=== PATIENT | female | born 1975 | race African-American/Black ===

== ENCOUNTER → 2016-09-07 | Day surgery (SDC) | payer OTHER | END | disposition home or self-care (01) | LOC: JRADIR 09:27 | PROVIDERS: ATTEND Internal Medicine Endocrinology, Diabetes & Metabolism | PROC: 0G9G3ZX Drainage of Left Thyroid Gland Lobe, Percutaneous Approach, Diagnostic (ICD-10-PCS; principal; 2016-09-07) | PROC: BG44ZZZ Ultrasonography of Thyroid Gland (ICD-10-PCS; 2016-09-07) | DX: E04.1 Nontoxic single thyroid nodule (principal) | CPT/HCPCS: 76942; 88173; 88305-TC ==

== ENCOUNTER → 2016-09-15 | Day surgery (SDC) | payer OTHER ==
--- NOTE | 2016-09-16 14:34 | PATH ---
Cytology Non-Gynecological Report Patient Name: LUIS FELIPE ARMENDARIZ [facility]. Rec. #: [id number] /Age/Gender: 1975 (Age: 41) / F Account: [id number] Location: RADIOLOGY Taken: 09/15/2016 Received: 09/15/2016 Reported: 09/16/2016 Physicians: Adin Newton M.D. Specimen(s) Received RIGHT THYROID FNA Clinical History Right thyroid nodule, 2.66 x 2.30 x 2.82 cm Final Diagnosis THYROID GLAND, RIGHT LOBE, US GUIDED FINE NEEDLE ASPIRATION BIOPSY: SATISFACTORY FOR EVALUATION. NO MALIGNANT CELLS IDENTIFIED. CONSISTENT WITH NODULAR GOITER WITH CYSTIC CHANGE (BENIGN FOLLICULAR NODULE, BETHESDA CATEGORY II, BENIGN), SEE COMMENT. Comment: The smears and the cell block show clusters of bland appearing follicular epithelial cells arranged in mixed macro- and microfollicles and flat sheets. Many cells show Hurthle cell (lymphocytic) change. Macrophages are present indicative of cystic change. Abundant colloid is present. Electronically Signed Toni Campos M.D. Gross Description Received are four air dried smears, four smears in 95% alcohol, and 20 cc of bloody fluid in formalin. Four diff-quik stained slides, four Pap stained slides and one cell block are made.
== END | disposition home or self-care (01) ==
LOC: JRADIR 09:27
PROVIDERS: ATTEND Internal Medicine Endocrinology, Diabetes & Metabolism
PROC: 0G9H3ZX Drainage of Right Thyroid Gland Lobe, Percutaneous Approach, Diagnostic (ICD-10-PCS; principal; 2016-09-15)
PROC: BG44ZZZ Ultrasonography of Thyroid Gland (ICD-10-PCS; 2016-09-15)
DX: E04.1 Nontoxic single thyroid nodule (principal)
CPT/HCPCS: 76942; 88173; 88305-TC

== ENCOUNTER 2017-01-23 17:07 | Emergency (ER) | payer OTHER ==
[2017-01-23 17:12] VITALS: BP 125/90; PULSE 88; TEMP 98.4; BMI 42.7
[2017-01-23] MEDS ORDERED: ASPIRIN 81 MG CHEWABLE TABLETS PO ONE (19:21)
--- NOTE | 2017-01-23 19:26 | PDOC ---
History of Present Illness <Monica Pabon - Last Filed: 01/23/17 21:53> - General History Source: Patient Exam Limitations: No Limitations <Kelly Low - Last Filed: 01/24/17 01:18> - General Chief Complaint: Palpitations Stated Complaint: PALPITATIONS - History of Present Illness Initial Comments: 01/23/17 20:12 The patient is a 53 year old female, with a significant past medical history of hypertension (lisinopril), diabetes (taking metformin 500 mg and glipizide BID) , and asthma (inhaler as needed), who presents to the emergency department with complaint of chest discomfort, irregular heartbeat and palpitations today. 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 She states she has been intermittently experiencing palpitations which last for about a minute. She states she can not identify what brings the palpitations on. She also reports she has been feeling intermittent chest discomfort, described as congestion and heavy. SHe also states she has a nonproductive cough. She states her two daughters have a cough at home also. She reports experiencing palpitations in the past when her physician increased her metformin from 500mg to 1000mg, which she reports she has since decreased back to the 500mg. She states her glucose has been difficult to manage, however, states she knows she could be eating much better. The patient states she has also been under a great deal of stress lately because she is currently homeless and living in a [facility]. She states she was able to keep her insurance. She reports her brother from heart disease at age 46 this past June. She states her father dies of heart disease at age 48. She states her mother has CAD s/p stent. She denies lower extremity edema, shortness of breath, headache and dizziness. She denies fever, chills, nausea, vomit, diarrhea and constipation. She denies dysuria, frequency, urgency and hematuria. Allergies: morphine Past surgical history: partial thyroidectomy, x 3 Social history: Pt lives in a [facility]. Employed as a business integration manager. PCP - Dr. Walker (Monica Pabon) Past History <oMnica Pabon - Last Filed: 01/23/17 21:53> - Past Medical History Diabetes: Yes HTN: Yes Hypercholesterolemia: Yes - Family Disease History Family Disease History: Heart Disease: Father ( [place] age 42), Brother (from age 35) - Suicide/Smoking/Psychosocial Hx Smoking Status: Yes Smoking History: Never smoked Have you smoked in the past 12 months: Yes Number of Cigarettes Smoked Daily: 0 If you are a former smoker, when did you quit?: quit 8 months ago 'Breaking Loose' booklet given: 02/15/12 Hx Alcohol Use: No Drug/Substance Use Hx: No Substance Use Type: None Hx Substance Use Treatment: No <Kelly Low - Last Filed: 01/24/17 01:18> - Past Medical History Allergies/Adverse Reactions: Allergies Allergy/AdvReac Type Severity Reaction Status Date / Time morphine Allergy Itching Verified 01/23/17 17:08 Home Medications: Ambulatory Orders Hctz 25Mg/Triamterene [Dyazide 25/37.5 -] 1 cap PO DAILY #1 capsule 02/17/12 Lisinopril [Prinivil] 10 mg PO DAILY #1 02/17/12 Glipizide 5 mg PO BID 01/23/17 Metformin HCl 500 mg PO BID 01/23/17 Review of Systems - Review of Systems Able to Perform ROS?: Yes <Monica Pabon - Last Filed: 01/23/17 21:53> <Kelly Low - Last Filed: 01/24/17 01:18> - Review of Systems Comments:: 01/23/17 20:14 GENERAL/CONSTITUTIONAL: No fever or chills. No weakness. HEAD, EYES, EARS, NOSE AND THROAT: No change in vision. No ear pain or discharge. No sore throat. CARDIOVASCULAR: (+) Chest discomfort, palpitations, "irregular heartbeat". No shortness of breath. RESPIRATORY: (+) cough, No wheezing, or hemoptysis. GASTROINTESTINAL: No nausea, vomiting, diarrhea or constipation. GENITOURINARY: No dysuria, frequency, or change in urination. MUSCULOSKELETAL: No joint or muscle swelling or pain. No neck or back pain. SKIN: No rash NEUROLOGIC: No headache, vertigo, loss of consciousness, or change in strength/ sensation. ENDOCRINE: No increased thirst. No abnormal weight change. HEMATOLOGIC/LYMPHATIC: No anemia, easy bleeding, or history of blood clots. ALLERGIC/IMMUNOLOGIC: No hives or skin allergy. (Monica Pabon) *Physical Exam <Monica Pabon - Last Filed: 01/23/17 21:53> <Kelly Low - Last Filed: 01/24/17 01:18> - Vital Signs Last Vital Signs Temp Pulse Resp BP Pulse Ox 98.4 F 88 18 125/90 100 01/23/17 17:09 01/23/17 17:09 01/23/17 17:09 01/23/17 17:09 01/23/17 17:09 - Physical Exam Comments: 01/23/17 20:15 GENERAL: (+) obese. Awake, alert, and fully oriented, in no acute distress HEAD: No signs of trauma EYES: PERRLA, EOMI, sclera anicteric, conjunctiva clear ENT: Auricles normal inspection, hearing grossly normal, nares patent, oropharynx clear without exudates. Moist mucosa NECK: Normal ROM, supple, no lymphadenopathy, JVD, or masses LUNGS: Breath sounds equal, clear to auscultation bilaterally. No wheezes, and no crackles HEART: Regular rate and rhythm, normal S1 and S2, no murmurs, rubs or gallops ABDOMEN: Soft, nontender, normoactive bowel sounds. No guarding, no rebound. No masses EXTREMITIES: Normal range of motion, no edema. No clubbing or cyanosis. No cords , erythema, or tenderness NEUROLOGICAL: Cranial nerves II through XII grossly intact. Normal speech, normal gait SKIN: Warm, Dry, normal turgor, no rashes or lesions noted. (Monica Pabon) Heart Score/ECG Review <Monica Pabon - Last Filed: 01/23/17 21:53> - History History: Slightly suspicious - Electrocardiogram EKG: Normal - Age Age: </= 45 - Risk Factors Risk Factors Heart Score: Yes Hx Hypertension, Yes Hx Diabetes, Yes Positive family hx of cardiac disease, Yes Hx Obesity Based on the list above the patient has:: >/=3 risk factors or Hx atherosclerotic disease - Troponin Troponin: </= normal limit - Score Heart Score - Total: 2 - ECG Intrepretation Rhythm: Regular Rhythm - [place]: Normal - P and GA Atrial Enlargement: Left - ST and T Non Specific ST-T Wave changes: Yes <Kelly Low - Last Filed: 01/24/17 01:18> - ECG Intrepretation Comment:: 01/23/17 20:[address] Swift at 17:[address] Low at 19:00 Impression: Normal sinus rhythm without change from prior EKG on 02/15/12. ( Monica Pabon) - ST and T Comment:: 01/23/17 19:29 no acute change comparison 02/15/2012 (Kelly Low) ED Treatment Course - LABORATORY CBC & Chemistry Diagram: 01/23/17 19:39 01/23/17 19:39 <Monica Pabon - Last Filed: 01/23/17 21:53> - LABORATORY CBC & Chemistry Diagram: 01/23/17 19:39 01/23/17 19:39 <Kelly Low - Last Filed: 01/24/17 01:18> - ADDITIONAL ORDERS Additional order review: Laboratory Results 01/23/17 01/23/17 01/23/17 23:45 19:40 19:40 Sodium Potassium Chloride Carbon Dioxide Anion Gap BUN Creatinine Creat Clearance w eGFR Random Glucose Calcium Total Bilirubin AST ALT Alkaline Phosphatase Creatine Kinase 259 H Creatine Kinase Index 1.0 CK-MB (CK-2) 2.633 Troponin I < 0.02 Total Protein Albumin TSH Urine Color Yellow Urine Appearance Cloudy Urine pH 5.0 Ur Specific [place] 1.025 Urine Protein Negative Urine Glucose (UA) Negative Urine Ketones Negative Urine Blood Negative Urine Nitrite Negative Urine Bilirubin Negative Urine Urobilinogen Negative Urine RBC 3 Urine WBC 9 Ur Epithelial Cells Few Urine Mucus Rare Urine HCG, Qual Negative 01/23/17 19:39 Sodium 138 Potassium 4.0 Chloride 104 Carbon Dioxide 27 Anion Gap 7 L BUN 10 D Creatinine 0.8 Creat Clearance w eGFR > 60 Random Glucose 127 H Calcium 9.0 Total Bilirubin 0.5 AST 15 D ALT 23 D Alkaline Phosphatase 112 D Creatine Kinase 299 H Creatine Kinase Index 1.0 CK-MB (CK-2) 3.032 Troponin I < 0.02 Total Protein 7.8 Albumin 3.7 TSH 0.91 Urine Color Urine Appearance Urine pH Ur Specific [place] Urine Protein Urine Glucose (UA) Urine Ketones Urine Blood Urine Nitrite Urine Bilirubin Urine Urobilinogen Urine RBC Urine WBC Ur Epithelial Cells Urine Mucus Urine HCG, Qual 01/23/17 19:39 RBC 4.15 MCV 83.8 MCHC 34.3 RDW 13.8 MPV 8.7 Neutrophils % 60.2 Lymphocytes % 28.1 Monocytes % 9.1 Eosinophils % 2.2 Basophils % 0.4 - RADIOLOGY Radiology Studies Ordered: Category Date Time Status CHEST PA & LAT [RAD] Stat Radiology 01/23/17 19:22 Taken Radiograph Interpretation: 01/23/17 21:53 CXR was read by Dr. Low at this time Impression: No acute pulmonary disease (Monica Pabon) - Medications Given in the ED: ED Medications Discontinued Medications Generic Name Dose Route Start Last Admin Trade Name Freq PRN Reason Stop Dose Admin Aspirin 162 mg 01/23/17 19:21 01/23/17 19:50 Asa - PO 01/23/17 19:22 162 mg ONCE ONE Administration Medical Decision Making <Monica Pabon - Last Filed: 01/23/17 21:53> <Kelly Low - Last Filed: 01/24/17 01:18> - Medical Decision Making 01/23/17 19:23 41 yo F with h/o DM HTN palpitations, prior thyroidectomy here with c/o palpitations. no prior cardiac workup. started few days ago. describes as irregular feeling or skipped beats. does have mild chest tightness. no sob. no n /v sometimes has substernal burning feeling. no leg swelling. believes symptoms are related to recent increase in metformin from 500 to 1000 bid. does have family h/o cad ( mother , brother mi 42 , father mi 47, mother [facility] stents) . no f/c no n/f no other complaints. on exam awake alert lungs clear heart rrr no mrg. abd soft obese. nt. nd. ext wwp no edema. 2 _ dp/ pt pulses. nuero alert oriented, move all four ext. plan: r/o endocrine causes, electrolyte abnormality, r/o acs. hydrate. ua ucg. ekg r/o irregular dysrhhtymia. reassess. cxr. 01/23/17 20:44 review pt old electronic record. had negative stress and echo 2011 which was normal for similar complaints. 01/24/17 01:11 labs unremarkable. 4 hour trop negative will dc home with follow up [facility] cardiology. given referral for dr Talamantes who she has seen in the past. pt states she does have insurrance and will call for followup. encouraged to see her regular doctor to discuss the metformin dosing. (Kelly Low) *DC/Admit/Observation/Transfer <Monica Pabon - Last Filed: 01/23/17 21:53> - Discharge Dispostion Admit: No <Kelly Low - Last Filed: 01/24/17 01:18> Diagnosis at time of Disposition: Palpitations - Discharge Dispostion Disposition: HOME Condition at time of disposition: Improved - Referrals Referrals: Elsa Walker MD [Primary Care Provider] - Shade Talamantes MD [Staff Physician] - - Patient Instructions Printed Discharge Instructions: DI for Palpitations Additional Instructions: follow up with dr walker, call to schedule. your labs are all normal. you should return for any problems or concerns. you should also follow up with dr Talamantes consumer services consultant. see referral information and call to schedule. - Attestations Scribe Attestion: 01/23/17 20:16 Documentation prepared by Monica Pabon, acting as medical front desk coordinator for Kelly Low MD, (Monica Pabon)
[2017-01-23] MEDS ORDERED: ASPIRIN 81 MG CHEWABLE TABLETS ONE (19:45)
[2017-01-23 19:47] LABS: URINE APPEARANCE CLOUDY; URINE BILIRUBIN NEGATIVE (NEGATIVE); URINE BLOOD NEGATIVE (NEGATIVE); URINE COLOR YELLOW; URINE GLUCOSE (UA) NEGATIVE (NEGATIVE); URINE KETONE NEGATIVE (NEGATIVE); URINE LEUK ESTERASE TRACE (NEGATIVE); URINE NITRITE NEGATIVE (NEGATIVE); URINE PROTEIN NEGATIVE (NEGATIVE); URINE UROBILINOGEN NEGATIVE mg/dL (0.2-1.0)
[2017-01-23 19:49] LABS: BASOPHIL 0.4 % (0-2.0); EOSINOPHIL 2.2 % (0-4.5); MCH 28.7 pg (25.7-33.7); MCHC 34.3 g/dl (32.0-36.0); MEAN CELL VOLUME 83.8 fl (80-96); MEAN PLT VOLUME 8.7 fl (7.5-11.1); NEUTROPHILS 60.2 % (42.8-82.8); PLATELET COUNT 281 K/MM3 (134-434); RDW 13.8 % (11.6-15.6); WHITE BLOOD COUNT 8.5 K/mm3 (4.0-10.0)
[2017-01-23 19:55] LABS: URINE MUCUS RARE; URINE RBC 3 /hpf (0-3); URINE WBC 9 /hpf (3-5)
[2017-01-23 20:35] LABS: ALBUMIN 3.7 g/dl (3.4-5.0); ANION GAP 7 (8-16); BILIRUBIN,TOTAL 0.5 mg/dL (0.2-1.0); CO2 27 mmol/L (21-32); CREATININE 0.8 mg/dL (0.55-1.02); GLUCOSE,RANDOM 127 mg/dL (74-106); SGOT/AST 15 U/L (15-37); SGPT/ALT 23 U/L (12-78); TOT PROT 7.8 g/dl (6.4-8.2)
[2017-01-23 20:43] LABS: ALK PHOS 112 U/L (45-117); CPK 299 IU/L (26-192); THYROID STIMULATING HORMONE 0.91 uIU/ml (0.358-3.74); TROPONIN I < 0.02 ng/ml (0.00-0.05)
[2017-01-24 00:23] LABS: CPK 259 IU/L (26-192); TROPONIN I < 0.02 ng/ml (0.00-0.05)
--- NOTE | 2017-01-25 11:30 | EKG ---
Test Reason : Blood Pressure : / mmHG Vent. Rate : 089 BPM Atrial Rate : 089 BPM P-R Int : 176 ms QRS Dur : 098 ms QT Int : 396 ms P-R-T Axes : 028 -05 020 degrees QTc Int : 481 ms NORMAL SINUS RHYTHM PROLONGED QT ABNORMAL ECG WHEN COMPARED WITH ECG OF 15-FEB-2012 19:48, NO SIGNIFICANT CHANGE WAS FOUND Confirmed by MARGARITA LAND MD ([id number]) on 01/25/2017 11:30:04 AM Referred By: Confirmed By:MARGARITA LAND MD
== END 2017-01-24 01:41 | disposition home or self-care (01) ==
LOC: JER 17:07
DX: R00.2 Palpitations (principal); I10 Essential (primary) hypertension; E11.9 Type 2 diabetes mellitus without complications; Z79.84 Long term (current) use of oral hypoglycemic drugs; E78.00 Pure hypercholesterolemia, unspecified; J45.909 Unspecified asthma, uncomplicated
CPT/HCPCS: 36415; 71020-TC; 80053; 81003; 81015; 82553; 84443; 84484; 84703; 85025; 93005; 93010; 99283-25

== ENCOUNTER 2020-07-19 12:28 | Emergency (ER) | payer OTHER ==
[2020-07-19 13:07] VITALS: BP 122/86; PULSE 91; TEMP 99.3; BMI 43.2
[2020-07-19 13:12] LABS: EPITHELIAL CELLS FEW /hpf
[2020-07-19] MEDS ORDERED: SULFAMETHOXAZOLE/TRIMETHOPRIM 800MG/160MG D.S. TABLET PO ONE (13:29)
[2020-07-19] MEDS ORDERED: PHENAZOPYRIDINE HCL 100 MG TABLET (FP) PO ONE (13:30)
== END 2020-07-19 13:58 | disposition home or self-care (01) ==
LOC: FER 12:28
DX: N39.0 Urinary tract infection, site not specified (principal)
CPT/HCPCS: 81003; 81015; 87086; 87186; 99284-25

== ENCOUNTER 2023-03-28 22:03 | Emergency (ER) | payer OTHER ==
[2023-03-28 22:20] VITALS: BP 156/109; PULSE 79; RESP 16; TEMP 98.2; BMI 35.2
[2023-03-28] MEDS ORDERED: ACETAMINOPHEN 500 MG TABLET (FP) PO ONE (23:11)
[2023-03-28] MEDS ORDERED: ACETAMINOPHEN 500 MG TABLET (FP) ONE (23:11)
[2023-03-28] MEDS ORDERED: TOBRAMYCIN 0.3% OPHTH SOLN 5 ML BOTTLE OD ONE (23:47)
[2023-03-28] MEDS ORDERED: TOBRAMYCIN 0.3% OPHTH SOLN 5 ML BOTTLE ONE (23:49)
[2023-03-28] MEDS ORDERED: TETRACAINE 0.5% OPHTH SOLN 2 ML BOTTLE ONE (23:50)
[2023-03-28] MEDS ORDERED: FLUORESCEIN NA 1 EA STRIP ONE (23:50)
[2023-03-28] MEDS ORDERED: AMOX TR/POT CLAV 875MG/125MG TABLETS (FP) PO ONE (23:56)
[2023-03-29] MEDS ORDERED: AMOX TR/POT CLAV 875MG/125MG TABLETS (FP) ONE (00:01)
== END 2023-03-29 00:17 | disposition home or self-care (01) ==
LOC: FER 22:03
DX: L03.213 Periorbital cellulitis (principal); H57.89 Other specified disorders of eye and adnexa; R22.0 Localized swelling, mass and lump, head
CPT/HCPCS: 99283-25

== ENCOUNTER 2023-04-05 09:46 | Emergency (ER) | payer OTHER ==
[2023-04-05 10:02] VITALS: BP 132/94; PULSE 109; RESP 16; TEMP 99.2; BMI 35.5
[2023-04-05] MEDS ORDERED: KETOROLAC TROMETHAMINE 15 MG/ML VIAL IM ONE (10:07)
[2023-04-05] MEDS ORDERED: KETOROLAC TROMETHAMINE 30 MG/1 ML VIAL ONE (10:13)
== END 2023-04-05 12:52 | disposition home or self-care (01) ==
LOC: FER 09:46
PROC: 3E0233Z Introduction of Anti-inflammatory into Muscle, Percutaneous Approach (ICD-10-PCS; principal; 2023-04-05)
DX: M79.672 Pain in left foot (principal); R22.42 Localized swelling, mass and lump, left lower limb
CPT/HCPCS: 73610-TC-LT-FY; 73630-TC-LT; 93971-TC; 99284-25